=== PATIENT | male | born 1975 | race American Indian/Alaskan Native ===

== ENCOUNTER 2018-01-27 13:42 | Emergency (ER) | payer OTHER ==
[2018-01-27 14:02] VITALS: O2SAT 98
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
== END 2018-01-27 17:39 | disposition home or self-care (01) ==
LOC: H.ER 13:42
DX: M25.561 Pain in right knee (principal); M25.551 Pain in right hip; M25.552 Pain in left hip; V43.62XA Car passenger injured in collision with other type car in traffic accident, initial encounter; Y92.410 Unspecified street and highway as the place of occurrence of the external cause